=== PATIENT | male | born 1960 | race Caucasian/White ===

== ENCOUNTER 2020-11-30 17:54 | Day surgery (SDCO) | payer OTHER ==
[~2020-11-30 17:54] MED LIST: ANUCORT-HC25 MG PR; IBUPROFEN800 MG PO
[2020-11-30 18:17] LABS: BASOPHIL 0.6 % (0-2); EOSINOPHIL 2.5 % (0-5); HCT 43.7 % (42.0-52.0); HGB 14.6 g/dl (13.2-18.0); LYMPHOCYTE 28.6 % (15-48); MCH 31.9 pg (25.0-31.0); MCHC 33.4 g/dL (32.0-36.0); MCV 95.4 fL (78.0-100.0); NRBC 0; PLT 265 K/uL (150-400); RBC 4.58 M/uL (4.70-6.00); RDW 13.2 % (11.5-14.0); WBC 10.2 K/uL (4.0-10.5)
[2020-11-30 18:59] LABS: BUN/CREAT RATIO (CALC) 11.3 RATIO; CREATININE 1.15 mg/dL (0.67-1.17); POTASSIUM 4.2 mmol/L (3.5-5.1)
[2020-11-30 19:12] LABS: CKMB <0.5 ng/mL (0.0-3.6)
[2020-11-30 20:24] LABS: PROTHROMBIN TIME 12.5 SECONDS (11.4-13.6)
[2020-11-30 20:59] LABS: CORONAVIRUS 2019 SARS-COV-2 NEGATIVE (NEGATIVE); INFLUENZA A NAA NEGATIVE (NEGATIVE)
--- NOTE | 2020-11-30 23:10 | NUR ---
PATIENT ARRIVED TO FLOOR VIA STREACHER ALERT AD ORIENTED. ABLE TO MAKE NEEDS KNOWN, CALL LIGHT IN REACH. REPORT CALLED BY KIRSTEN TITUS NO DISTRESS AT THIS TIME
[2020-11-30] MEDS ORDERED: NAPROXEN500 MG PO (23:19)
[2020-12-01 04:50] LABS: BASOPHIL 0.5 % (0-2); EOSINOPHIL 2.9 % (0-5); HCT 42.6 % (42.0-52.0); HGB 14.1 g/dl (13.2-18.0); LYMPHOCYTE 37.7 % (15-48); MCHC 33.1 g/dL (32.0-36.0); MCV 96.6 fL (78.0-100.0); MONOCYTE 9.2 % (0-12); MPV 11.2 fL (6.0-9.5); NEUTROPHIL 49.2 % (41-80); NRBC 0; PLT 251 K/uL (150-400); RBC 4.41 M/uL (4.70-6.00); RDW 13.2 % (11.5-14.0); WBC 9.5 K/uL (4.0-10.5)
[2020-12-01 05:00] LABS: INR 1.08 (0.9-1.2); PROTHROMBIN TIME 13.3 SECONDS (11.4-13.6)
[2020-12-01 05:21] LABS: ALBUMIN 3.1 g/dL (3.4-5.0); BILIRUBIN - TOTAL 0.6 mg/dL (0.2-1.0); CREATININE 1.08 mg/dL (0.67-1.17); GLOBULIN (CALCULATION) 3.3 g/dL; MAGNESIUM 2.4 mg/dL (1.8-2.4); PHOSPHORUS 3.2 mg/dL (2.6-4.7); POTASSIUM 4.7 mmol/L (3.5-5.1); TOTAL PROTEIN 6.4 g/dL (6.4-8.2)
--- NOTE | 2020-12-01 10:25 | NUR ---
PT LIVES ALONE; REPORTS HE IS INDEPENDENT WITH ADL'S. PLEASE ADVISE OF ANY DISCHARGE NEEDS
[2020-12-01] MEDS ORDERED: HABITROL14 MG TD (10:26)
[2020-12-01] MEDS ORDERED: ELIQUIS5 MG PO (10:26)
--- NOTE | 2020-12-01 11:38 | NUR ---
FLU VACCINE GIVEN IN RT. ARM, VIS STATEMENT PROVIDED TO PT, HELD FOR 15 MIN, NO S/S REACTION NOTED. PT TOLERATED WELL.
== END 2020-12-01 11:50 | disposition home or self-care (01) ==
LOC: FER 17:54 → FTCU 20:36
PROVIDERS: Emergency Medicine; Nurse Practitioner; ADMIT Internal Medicine
DX: I26.93 Single subsegmental thrombotic pulmonary embolism without acute cor pulmonale (principal); J43.9 Emphysema, unspecified; J90 Pleural effusion, not elsewhere classified; J98.11 Atelectasis; F17.210 Nicotine dependence, cigarettes, uncomplicated; Z20.822 Contact with and (suspected) exposure to COVID-19; Z23 Encounter for immunization; Z98.890 Other specified postprocedural states; Z82.49 Family history of ischemic heart disease and other diseases of the circulatory system; Z79.899 Other long term (current) drug therapy
CPT/HCPCS: 36415; 71046; 71275; 80048; 80053; 80061; 82553; 83735; 84100; 84484; 85025; 85379; 85610; 90686; 93005; 93970; G0008; G0378; J1650; Q9967; U0002

== ENCOUNTER 2021-07-01 13:25 | Emergency (ER) | payer OTHER ==
[~2021-07-01 13:25] MED LIST changes: +ELIQUIS5 MG PO; +HABITROL14 MG TD; +NAPROXEN500 MG PO
== END 2021-07-01 16:50 | disposition home or self-care (01) ==
LOC: FER 13:25
DX: Z04.71 Encounter for examination and observation following alleged adult physical abuse (principal)
CPT/HCPCS: 70450; 71100; 72125; 73130